=== PATIENT | female | born 1960 | race Caucasian/White ===

== ENCOUNTER 2018-02-15 10:08 | Inpatient (IN) | payer OTHER, SELFPAY ==
[2018-01-24 08:51] VITALS: BMI 27.9
[2018-02-15] VITALS (16 sets, daily range): BP systolic 97–131; BP diastolic 37–75; PULSE 64–111; RESP 10–16; TEMP 36.2–37.1; O2SAT 95–100; BMI 27.9
--- NOTE | 2018-02-15 | DI.RAD.S_ITS ---
PROCEDURE: XR CERVICAL SPINE 2V OR 3V INDICATIONS: C4-5, C5-6, C6-7 ACDF FINDINGS: 2 limited intraoperative fluoroscopically stored images of the cervical spine were obtained for intraoperative hardware localization purposes. These images are not meant for diagnostic purposes. Intraoperative findings related to a InterServe or cold discectomy and fusion procedure are present. IMPRESSION: Intraoperative images obtained during the patient's lower cervical fusion procedure. Dictated by: Piotr Leija M.D. on 02/15/2018 at 14:39 Approved by: Piotr Leija M.D. on 02/15/2018 at 14:42
[2018-02-15] MEDS: LACTATED RINGERS 1,000 ML 42 ML IV ×2 (10:50→15:23)
--- NOTE | 2018-02-15 12:22 | PM.PREOP ---
Pre-operative Note Interval Note Pre-op Check: Yes History & Physical Reviewed by Physician, Yes Exam Performed and Yes History & Physical exam performed today by Physician Changes: No
[2018-02-15] MEDS: CEFAZOLIN 2 GM/100 ML FROZ.PIGGY IV ×2 (12:47→22:27)
--- NOTE | 2018-02-15 13:37 | SUR.OPER ---
Supine, head on gel donut. Arms padded with gel pads, tucked at sides, towel roll under shoulders. Safety belt at thigh. Legs uncrossed.
[2018-02-15] MEDS: fentaNYL 100 MCG/2 ML INJ 50 MCG IV (15:44)
--- NOTE | 2018-02-15 15:44 | P.OP_ITS ---
Operative Date/Time/Diagnoses Date of procedure: 02/15/18 Time of procedure: 12:09 Pre-op diagnosis: 1. C4-5, c5-6, C6-7 spinal stenosis 2. C4-5, C5-6, C6-7 spondylosis with radiculopathy Post-op diagnosis: same Procedure & Clinicians Procedure: 1. C4-5 C5-6 C6-7 anterior cervical diskectomy and fusion 2. C4-5 C5-6 C6-7 anterior interbody cage placement 3. C4-5 C5-6 C6-7 anterior instrumentation with plate and screw placement in C4 -C5-C6 and C7 vertebrae 4. Utilization of microsurgical technique and operating microscope Same procedure as scheduled: Yes Indications: Patient has been having chronic neck pain and worsening cervical radiculopathy. Patient failed multiple conservative management with worsening pain weakness and numbness in her upper extremity. Patient has been having difficulty performing activity of daily living. After discussing risks benefits of treatment options, patient elected proceed with surgery. Surgeon: La Salazar Assembly Line Inspector: Perla Benson Click Yes if Unassisted: No Anesthesia Type: General Operative Notes Closure Type: primary Specimen(s): none sent Implants & Drains: GLobus extend plate, PEEK cages Estimated Blood Loss (mL): 50 Blood products transfused: none Procedure in detail: Patient was seen in the preoperative area. Risks and benefits of the surgery was discussed with the patient. Operative consent was obtained and placed in the chart. Patient was then taken to the operative room. Prophylactic antibiotic was given less than 0.5 hr prior to skin incision. General anesthesia was administered. Patient was placed into a supine position on her radiolucent table. Bilateral shoulders were taped down to allow proper C-arm imaging. Anterior cervical area was prepped and draped in a sterile fashion. Time-out was performed at this time. Using lateral C-arm imaging, the level between C4 and C7 was identified and marked on patient's neck. A oblique incision from midline towards medial border of sternocleidomastoid muscle was made. The platysma muscle was incised in line with skin incision. Metzenbaum scissor was used to develop the plane between the medial border of sternocleidomastoid d and the strap muscles medially. The carotid sheath and its contents were identified and protected behind the hand- held retractor during the entire case. The plane between the carotid sheath and strap muscles was developed with Metzenbaum scissors. Dissection was made down to the level of the anterior cervical fascia. Longus colli muscle was incised on the anterior aspect of vertebral bodies bilaterally from C4-C7. Spinal needle was placed into the C4-5 disc space and confirmed with lateral C-arm imaging. Using microsurgical technique and operative microscope, anterior cervical diskectomy was performed at C4-5 C5-6 and C6-7 level. This was done by removing the disc material, removing the anterior and posterior osteophytes posterior longitudinal ligaments along with performing bilateral foraminotomies at all 3 levels. Patient was found to have severe central and foraminal stenosis at all 3 levels. Patient's stenosis was fully decompressed after decompression was completed. After the diskectomy was completed, 3 anterior interbody cages were obtained. The cages were packed with globus via cell bone grafting material. One cage each along with the bone grafting material was then packed into the interbody spaces from C4-C7 with one cage into each interbody level. After the cages were placed, the anterior cervical plate was stabilized to the C4-C7 vertebrae using 2 screws at each each level. Total 8 screws were placed. After confirming placement of the hardware with AP and lateral C-arm imaging, the screws were locked into the plate using the locking mechanism and torque limiting screwdriver. After the hardware was placed and confirmed with AP and lateral C-arm imaging, the wound was irrigated with sterile normal saline. The platysma muscle and the subcutaneous tissue was closed with 2-0 Vicryl. The skin was closed with 4- 0Monocryl and Steri-Strips. Patient tolerated the procedure well. Patient was transferred recovery room in stable condition. There were no complications. Complications: none Condition: stable Disposition: Acute Care Plan for aftercare: Admit to inpatient hospital
[2018-02-15] MEDS: ONDANSETRON 4 MG/2 ML INJ IV (15:45)
[2018-02-15] MEDS: hydrOXYzine 50 MG/ML INJ 25 MG IM (15:49)
[2018-02-15] MEDS: SODIUM CHLORIDE 0.9% 1,000 ML 100 ML IV (17:35)
[2018-02-15] MEDS: hydrOXYzine pamoate 25 MG CAPSULE PO (19:55)
[2018-02-15] MEDS: IBUPROFEN 400 MG TABLET PO (20:04)
--- NOTE | 2018-02-15 21:00 | PC.NURSE ---
4368- Pt arrived to room 203 from PACU via bed. A/O x3, ant neck gauze/tegaderm drsg CDI, soft collar on. 99-100%RA, LS clear, denies SOB, nausea, and rates pain 2-3/10. R wrist NS @ 100, Up to BSC and BRP to void clear yellow. New orders for Vistaril 25mg Q-6hr PO PRN and ibuprofen 400mg PO Q-4hrs PRN. Pt reports not apt to take narcotics if possible, very sensitive. Call light in reach and bed alarm on.
[2018-02-15] MEDS: DOCUSATE 100 MG CAPSULE PO (22:27)
[2018-02-15] MEDS: SENNOSIDES 8.6 MG TABLET 17.2 MG PO (22:28)
[2018-02-15] MEDS: GABAPENTIN 600 MG TABLET PO (22:28)
[2018-02-15] MEDS: LORazepam 1 MG TABLET PO (22:35)
[2018-02-16] MEDS: OXYCODONE IR 5 MG TABLET 10 MG PO (03:23)
[2018-02-16] MEDS: SODIUM CHLORIDE 0.9% 1,000 ML 100 ML IV ×2 (03:23→10:37)
[2018-02-16 04:30] VITALS: BP 117/64; PULSE 80; RESP 16; TEMP 36.8; O2SAT 97
[2018-02-16] MEDS: CEFAZOLIN 2 GM/100 ML FROZ.PIGGY IV (04:50)
[2018-02-16 07:45] VITALS: BP 122/80; PULSE 75; RESP 14; TEMP 36.8; O2SAT 99
--- NOTE | 2018-02-16 09:19 | PT.IIE ---
Addendum entered and electronically signed by Rita Paredes, PT 02/16/18 16:59: This is to certify that I have reviewed this documentation and POC. Original Note: Current Diagnoses Other spondylosis with radiculopathy, cervical region (02/15/18) Spinal stenosis, cervical region (02/15/18) Surgery Performed Operation Date: 02/15/18 12:15 Actual Procedures p C4-5,C5-6,C6-7 Anterior Cervical Discectomy and Fusion with anterior instrumentation - La Salazar MD Surgical History (Last Updated 01/24/18 @ 09:24 by Tayler Drake RN) History of delivery (Acute) History of gastric surgery (Acute) History of mandibular surgery (Acute) Hx of arthroscopy of left knee (Acute) Hx of cholecystectomy (Acute) Hx of dilation and curettage (Acute) Hx of total hysterectomy (Acute) S/P foot surgery, left (Acute) Medical History (Last Updated 01/24/18 @ 09:24 by Tayler Drake RN) Anxiety and depression (Acute) Back pain (Acute) Claustrophobia (Acute) Diabetes (Acute) Easy bruisability (Acute) Eczema of both hands (Acute) Endometriosis (Acute) Fatty liver (Acute) History of bronchitis (Acute) History of ectopic (Acute) Hx of cardiac murmur (Acute) Neck pain (Acute) Numbness and tingling (Acute) RLS (restless legs syndrome) (Acute) Sleep apnea (Acute) Physical Therapy Inpatient Evaluation/Re-Eval M1 PT/OT-IP Prior Functional Status Start: 02/16/18 12:46 Freq: NEEDED Status: Discharge Protocol: Document 02/16/18 09:19 (Rec: 02/16/18 13:15 [id number]) Medical Review Prior Functional Status Medical History Reviewed Yes Communication No deficits noted. Mobility and Gait Pt previously independent with all mobilities using no AD including self care and driving. Social History Household Members spouse Living Arrangements Apartment/Condo Number of Floors (Floors) One Floor Number of Stairs To Enter/Railing? No stairs to enter. Home Environment High Toilet Walk in Shower Built-In Shower Seat Home Equipment Straight Cane Hand Held Shower Grab Bars Near Toilet Grab Bars In Shower Employment Status Follow Up Rep Employed Additional Social History Comment Pt lives with her who has dementia. She states he may be able to assist her a little at d/c. Her daughter lives next door and can assist intermittently post-op. 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 M1 PT/OT-IP Prior Functional Status Start: 02/16/18 16:26 Freq: NEEDED Status: Discharge Protocol: Document 02/16/18 14:20 PJM (Rec: 02/16/18 16:41 PJM [id number]) Medical Review Prior Functional Status Medical History Reviewed Yes Diet/Fluid Consistency Regular Communication WNL Mobility and Gait Pt previously independent with all mobilities using no AD. Activities of Daily Living and IADL's Pt independent with all self care, IADLS, driving. 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 He needs min assist with shower and donning socks and shoes. Prior Functional Level (Other details) Pt's daughter lvies with them, but owrks time checker. She can assist with IADLS before and after work. Pt has home care assist with 4 hrs/day 1-2 days/week and is planning to increase this time if needed. Pt plans to have L shoulder surgery prior in 2-3 weeks pending recovery from C spine surgery. Social History Household Members spouse children Living Arrangements Apartment/Condo Number of Floors (Floors) One Floor Number of Stairs To Enter/Railing? see P.T. note Home Environment Tub/Shower Built-In Shower Seat Home Equipment Hand Held Shower Correctional Officer Grab Bars In Shower Employment Status Follow Up Rep Employed Additional Social History Comment Pt has walk in tub with built in seat at home M2 PT-IP Current Condition Start: 02/16/18 12:46 Freq: NEEDED Status: Discharge Protocol: Document 02/16/18 09:19 (Rec: 02/16/18 13:15 [id number]) Physical Therapy Current Condition Current Condition Evaluation Date 02/16/18 Treatment Diagnosis C-spine discectomy/fusion; difficulty walking. Onset Date 02/15/2018 Precautions Cervical Spine Precautions Soft Collar for Comfort No Heavy Lifting Log Roll Brace Soft collar M3 PT-IP Subjective Start: 02/16/18 12:46 Freq: NEEDED Status: Discharge Protocol: Document 02/16/18 14:45 GGD (Rec: 02/16/18 15:46 GGD [id number]) Subjective Physical Therapy Visit Type Type Treatment Note Visit Start Time 14:30 Visit Stop Time 14:45 Total Visit Minutes 15 Number of IT LEAD Visits 1 Physical Therapy Visit Comments Patient Comments Pt states she want's to go home. Therapy Pain Assessment Pain When Pain Assessed During Mobility Pain Present Pain Present Pain Reported M4 PT-IP Mobility and Gait Start: 02/16/18 12:46 Freq: NEEDED Status: Discharge Protocol: Document 02/16/18 14:45 GGD (Rec: 02/16/18 15:46 GGD [id number]) PT-Bed Mobility Assessment Rolling Type of Rolling Log Rolling Bilateral Level of Assist Standby Assistance Supine to Sit Supine to Sit Standby Assistance Sit to Supine Sit to Supine Standby Assistance Scooting Scooting to Edge of Bed Standby Assistance PT-Transfer Assessment Sit to and From Stand Sit to and from Stand Contact Guard Assistance Use of Upper Extremities Equipment Transfer Assistive Device Gait Belt Front Wheeled Walker Orthotic/Prosthetic Devices or Brace: No Transfers Transfer Destination Bed Comments Mobility Comments BP after ambulation 136/91 Gait Assessment Gait Gait Assistance Required: Standby Assistance Distance (Feet) 80 Able to Maintain Weight Bearing Status Yes During Gait Assistive Devices Assistive Device Gait Belt Orthotic/Prosthetic Devices or Brace: No Gait Deviations General Gait Pattern Decreased Stride Length Decreased Feet Clearance Factors Limiting Gait Function Factors Limiting Gait Function Decreased Activity Tolerance Limited Range of Motion Pain Poor Balance Poor Safety Awareness M5 PT-IP Objective Assessments Start: 02/16/18 12:46 Freq: NEEDED Status: Discharge Protocol: Document 02/16/18 09:19 (Rec: 02/16/18 13:15 [id number]) Orientation Orientation/Cognition Level of Alertness Alert Orientation Name Age Birthday Month Date Year Day of Week Place Situation Language Function Ability No Deficits Noted Safety Awareness Decreased Safety Awareness Gross Range of Motion Lower Extremity ROM Assessment Within Functional Limits Strength Lower Extremity Strength Assessment Within Functional Limits Comments Strength Comments 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 BLE 5/5 . Sensation Assessment Sensation Light Touch Intact Comments Sensation Comments Pt states her L hand has a weird numb feeling. Light touch is intact when tested. M6 PT-IP Treatment Start: 02/16/18 12:46 Freq: NEEDED Status: Discharge Protocol: Document 02/16/18 14:45 GGD (Rec: 02/16/18 15:46 GGD [id number]) Physical Therapy Treatment Education Education Provided Precautions Safety M7 PT-IP Assessment and Plan Start: 02/16/18 12:46 Freq: NEEDED Status: Discharge Protocol: Document 02/16/18 14:45 GGD (Rec: 02/16/18 15:46 GGD [id number]) PT Summary Assessment and Plan Summary Assessment Summary Pt improved with mobility. She was able to ambulate without assistive device without LOB. She was SBA for bed mobility. Her BP was stable with mobility and no C/O dizziness. Frequency of Treatment Frequency Of Treatment Twice a Day Discharge Recommendations PT Discharge Recommendations Home with Assistance
[2018-02-16] MEDS: SODIUM CHLORIDE 0.9% 1,000 ML 1000 ML IV (09:30)
[2018-02-16] MEDS: ESTRADIOL 1 MG TABLET PO (09:35)
[2018-02-16] MEDS: FLUoxetine 20 MG CAPSULE 40 MG PO (09:35)
[2018-02-16] MEDS: DOCUSATE 100 MG CAPSULE PO (09:35)
[2018-02-16] MEDS: LORATADINE 10 MG TABLET PO (09:36)
[2018-02-16] MEDS: GABAPENTIN 600 MG TABLET PO ×2 (09:36→14:37)
[2018-02-16] MEDS: HYDROCODONE/ACET 5/325 TABLET 2 TAB PO ×2 (09:39→14:49)
[2018-02-16 11:08] VITALS: BP 123/67; PULSE 73; RESP 14; TEMP 36.7; O2SAT 100
--- NOTE | 2018-02-16 11:38 | P.DS_ITS ---
History of Present Illness Date Patient Seen: 02/16/18 Time Patient Seen: 11:37 Chief complaint: [id number] Narrative: Patient has been having chronic neck pain and worsening cervical radiculopathy. Patient failed multiple conservative management with worsening pain weakness and numbness in her upper extremity. Patient has been having difficulty performing activity of daily living. After discussing risks benefits of treatment options, patient elected proceed with surgery. Discharge Providers Date of admission: 02/15/18 10:08 Consults: 01/24/18 09:37 Consult to Respiratory Therapy Evaluate & Treat Comment: C4-7 ACDF 02/15/18, no CPAP r/t abdominal sugery Physician Instructions: Evaluate and treat 02/15/18 16:27 Consult to Occupational Therapy Evaluate & Treat Comment: Physician Instructions: Evaluate and treat Consult to Physical Therapy Evaluate & Treat Comment: Physician Instructions: Evaluate and Treat Discharge provider: Dee Stephenson PA-C Discharge Date: 02/16/18 Summary Discharge Diagnosis: s/p C4-7 ACDF Hospital Course: Honey was admitted for C4 through 7 Artificial cervical discectomy and fusion with Dr. Salazar, and she consented procedure. Hospital course was unremarkable. On postop day 1. She is ready to go home. She is eating and voiding without difficulty or assistance. No difficulty swallowing. Her pain was well controlled. She worked with physical therapy prior to discharge. Status at Discharge Functional status at discharge: uses cane/walker Exam Vital Signs (past 8 hours): - 02/16/18 04:30 02/16/18 07:45 Temperature 98.3 F 98.2 F Pulse Rate 80 75 Respiratory Rate 16 14 Blood Pressure 117/64 122/80 Pulse Oximetry 97 99 Oxygen Delivery Method Room Air Oxygen Flow Rate 0 Narrative Exam Narrative: Patient is sitting up in bed in no acute distress. She is alert and oriented x3. Calves are soft, compressible, nontender bilaterally. Anterior neck dressing at [facility]. Soft collar in place. Radial pulses are symmetrical. Her pain is well controlled with [place]. No complaints of chest pain or shortness of breath. Discharge Plan Discharge Plan Patient Disposition: Home Discharge comment: DC home today Discharge Med Rec/Prescriptions Prescriptions: New hydrocodone-acetaminophen 5-325 mg Tablet 2 tab PO Q4HR PRN (Reason: Pain, Severe (7-10)) Qty: 60 RF: 0 docusate sodium 100 mg Capsule 100 mg PO BID Qty: 60 RF: 0 hydroxyzine pamoate 25 mg Capsule 25 mg PO Q6HR PRN (Reason: Nausea) Qty: 60 RF: 0 Continue gabapentin 600 mg Tablet 600 mg PO TID RF: 0 cetirizine [Aller-[place]] 10 mg Tablet 10 mg PO DAILY RF: 0 ibuprofen 800 mg Tablet 800 mg PO QNOON RF: 0 methocarbamol [Robaxin-750] 750 mg Tablet 750 mg PO BEDTIME RF: 0 estradiol [Estrace] 2 mg Tablet 1 mg PO DAILY RF: 0 lorazepam [Ativan] 1 mg Tablet 1 mg PO BEDTIME RF: 0 fluoxetine [Prozac] 20 mg Capsule 40 mg PO DAILY RF: 0 Discontinued diclofenac sodium 100 mg Tablet Extended Release 24 Hr 100 mg PO DAILY RF: 0 Follow up/Referrals: La Salazar MD [Physician] - (Please follow up in 10-14 days with LISA) Provider Discharge Instructions Diet: Diet as Tolerated Activity: no excessive bending, lifting, or twisting Cold/Heat Therapy: as needed Skin/Wound/Dressing Care Report to your healthcare provider any signs of infection, such as:: chills, fever and increased pain Dressing: leave in place until appointment Discharge Data Attending Provider: La Salazar Admit Date/Time: 02/15/18 10:08
--- NOTE | 2018-02-16 11:50 | CM.DANOTE ---
Discharge Planning/Care Management Met with patient: patient notified of CM team role and patient understood. Patient has discharge orders home for today pending PT/OT eval. Patient unable to work with either at this time due to low BP. Patient will have the support of two daughters to assist patient with recovery and is very eager to discharge home today. Plan: pending PT/OT eval likely to discharge home with supportive spouse. CM Discharge Assessment Start: 02/16/18 11:46 Freq: Status: Active Protocol: Document 02/16/18 11:46 (Rec: 02/16/18 11:50 [id number]) Discharge Planning Assessment Assigned Office Clerk Assistant ADDIE Brown Advance Directives? Yes Advance Directives on File No History Provided By Patient Medical Record Has Patient been admitted in last 30 No days? Prior Living Arrangements Apartment/Condo Household Members spouse children Type of transporation used prior to Drives own vehicle admit Independent with ADL's Yes Is patient alert and oriented? Yes Caregiver for Another Yes: Spouse with dementia. Comment Helps spouse with shower and getting dressed. Family has private caregiver and supportive family lined up to care for spouse and patient. Patient/Family Preference OP PT Therapy Barriers to Discharge No Discharge Plan Home Community Services Physical Therapy Transportation Arrangement Daughter Zulay to bean picker patient. Referrals Initiated None needed Additional Comment Patient has discharge orders for home pending PT/OT eval. Patient was unable to work with either this morning due to low blood pressure. Whiteboard Updated in Patient Room with Yes name and ext. # of Office Clerk Assistant Review Status In Process Please Provide Date Initial DC 02/16/18 Assessment Was Performed Next Review Type Continued Stay Review Pre-Anesthesia Assessment Start: 01/24/18 08:51 Freq: Status: Inactive Protocol: Document 01/24/18 08:51 CAB (Rec: 01/24/18 09:35 CAB [id number]) Pre-Anesthesia Assessment Patient Information Reviewed Via Phone Assessment Assessment Completed With Patient Primary Care Provider Tea Mariano Seen Specialist in Last 12 Months Yes Specialist Seen Orthopedist Supervisor Vegetable Farming Primary Language Danish Rn Care Transition Required No Height 172.72 cm Weight 83.461 kg Body Mass Index (BMI) 27.9 Hearing Ability Normal Visual Assist Glasses Dentition Type Teeth, Natural Present Teeth, Missing Barriers to Learning None Hx Anesthesia Reactions No Hx Family Anesthesia Reaction No Hx Malignant Hyperthermia No Hx Blood Transfusions No Anesthesia Review Requested No Solar Sales Representative No alcohol intake former Alcohol Intake Frequency Other: Quit due to allergy Smoking Status Never smoker Substance Use Type does not use Pain Present Pain Reported Musculoskeletal Symptoms Back Pain Joint Pain Neck Pain Numbness History of Falling (Recent or History of No ) Patient is completely paralyzed or No completely immobile Mental Status Oriented to own ability Is patient on oxygen? No Does patient have DELAROSA/SOB No Hx Sleep Apnea Yes: States resolved after surgery, no CPAP Currently Taking a Beta Sourav No Can You Climb a Flight of Stairs Without Yes SOB Hx Chest Pain No Hx SOB No Hx Syncope or Dizziness Yes: Vertigo when head turned down Anti-Coagulant Therapy No Has a Braid Cutter No Cardiac Testing No Hx Pacemaker/ICD No Pacemaker Rep Required? No Cardiac Clearance Received Not Applicable Diet Type At Home Ketogenic dysphagia No: I need to do smaller bites Bladder Pattern Frequency Incontinent, Stress Urgency Urinary Catheter Present No Hx Urinary Self Catheterization No Diabetes Yes: Pt states resolved after gastric sleeve surgery Patient No Lactating No Hx Drug Resistant Organism No Presence of External or Internal Medical Yes Devices Comment Screws in jaw Have you traveled outside the [place] No States in the last 30 days? Marital Status Lives With spouse Prior Living Arrangements Apartment/Condo Number of Floors (Floors) One Floor Number of Stairs To Enter/Railing? Ramp or 2 steps Support System Child/Children Luiza/God Family Spouse Does the Patient Have Assistance After Yes Surgery Patient Discharge Plan Description Return Home Comment Spouse has dementia, limited support Feels Safe in Current Environment Yes Been Physically Hurt or Threatened By a No Person in Current Environment Do you have thoughts of harming yourself None or others? Are you currently considering suicide? No Do you have a plan to hurt yourself or No Plan others? Do You Have Any Spiritual Beliefs That No May Affect Your HC Choices? Do You Have Any Cultural Practices That No May Affect Your HC Choices? Spiritual Referral None Comment Yazdanism Who Can We Speak to About Patient's Care Family, friends Identifying Code for Release of Patient Declines to issue Information Health Care Proxy/Next of Kin Jolanta (daughter)Zulay ( daughter) Health Care Proxy Phone Number Jolanta: [phone] Zulay: Emergency Contact Name Jolanta (daughter)Zulay ( daughter) Emergency Contact Phone Number Jolanta: [phone] Zulay: [phone] Advance Directives? Yes Advance Directives on File No Requested Patient Bring Advanced Yes Directives DOS Power of Cell Operator No: Unsure PAC Instructions Durable medical equipment Medications to take/avoid Nasal antibiotic No ETOH/petroleum product on skin DOS NPO Post-op transportation Pre-surgical wash Sensory aids Sturdy shoes/comfortable clothes Do not bring valuables and remove jewelry
--- NOTE | 2018-02-16 13:37 | PC.NURSE ---
Called to bedside this morning by P.T. as patient reported some lightheadedness with getting up, blood pressure dropped to 64/35 per P.T. when she was standing and then assisted back to bed. Patient felt better with laying down. 123/63 upon reassessment. Gaby Roberts notified and order for fluid bolus received and administered. Patient also encouraged to take in more oral fluids. Patient able to rest in bed. Plan for re assessment by P.T. later today. Call light within reach, continue to follow.
--- NOTE | 2018-02-16 14:20 | OT.IP.EVAL ---
Current Diagnoses Other spondylosis with radiculopathy, cervical region (02/15/18) Spinal stenosis, cervical region (02/15/18) Surgery Performed Operation Date: 02/15/18 12:15 Actual Procedures p C4-5,C5-6,C6-7 Anterior Cervical Discectomy and Fusion with anterior instrumentation - La Salazar MD Past Medical History (Last Updated 01/24/18 @ 09:24 by Tayler Drake RN) Anxiety and depression (Acute) Back pain (Acute) Claustrophobia (Acute) Diabetes (Acute) Easy bruisability (Acute) Eczema of both hands (Acute) Endometriosis (Acute) Fatty liver (Acute) History of bronchitis (Acute) History of ectopic (Acute) Hx of cardiac murmur (Acute) Neck pain (Acute) Numbness and tingling (Acute) RLS (restless legs syndrome) (Acute) Sleep apnea (Acute) Surgical History (Last Updated 01/24/18 @ 09:24 by Tayler Drake RN) History of delivery (Acute) History of gastric surgery (Acute) History of mandibular surgery (Acute) Hx of arthroscopy of left knee (Acute) Hx of cholecystectomy (Acute) Hx of dilation and curettage (Acute) Hx of total hysterectomy (Acute) S/P foot surgery, left (Acute) Occupational Therapy Inpatient Evaluation/Re-Eval M1 PT/OT-IP Prior Functional Status Start: 02/16/18 16:26 Freq: NEEDED Status: Active Protocol: Document 02/16/18 14:20 PJM (Rec: 02/16/18 16:41 PJM [id number]) Medical Review Prior Functional Status Medical History Reviewed Yes Diet/Fluid Consistency Regular Communication WNL Mobility and Gait Pt previously independent with all mobilities using no AD. Activities of Daily Living and IADL's Pt independent with all self care, IADLS, driving. 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 He needs min assist with shower and donning socks and shoes. Prior Functional Level (Other details) Pt's daughter lives with them, but works time buyer. She can assist with IADLS before and after work. Pt has home care assist with 4 hrs/day 1-2 days/week and is planning to increase this time if needed. Pt plans to have L shoulder surgery prior in 2-3 weeks pending recovery from C spine surgery. Social History Household Members spouse children Living Arrangements Apartment/Condo Number of Floors (Floors) One Floor Number of Stairs To Enter/Railing? see P.T. 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 02/16/18 AM M3 OT- IP Subjective and Pain Start: 02/16/18 16:26 Freq: Status: Active Protocol: Document 02/16/18 14:20 PJM (Rec: 02/16/18 16:41 PJ [email or web address]) OT- Subjective Occupational Therapy Visit Type Type Initial Evaluation Visit Start Time 13:45 Visit Stop Time 14:20 Total Visit Minutes 35 Occupational Therapy Visit Comments Patient Comments I hope I can get my shoulder fixed in about 3 weeks. It is hurting more than my neck right now. Patient/Caregiver Goals to return to work in 6-8 weeks . OT Pain Assessment Pain When Pain Assessed After Treatment Pain Present Pain Present Pain Reported Location Left Shoulder Intensity 6 Scale Used Numeric (1 - 10) Description Aching Acute Burning M4 OT- IP ADL's Start: 02/16/18 16:26 Freq: Status: Active Protocol: Document 02/16/18 14:20 PJM (Rec: 02/16/18 16:41 PJ [id number]) OT [id number] General Evaluation Diet Level for Self-Feeding softer diet recommended Self-Feeding Ability Independent OT ADL-Grooming General Evaluation Grooming Ability Independent Areas Needing Assistance Combing/Brushing Hair Face Washing Comments OT Grooming Comments after education re: body mechanics OT ADL-Oral Care General Eval Oral Care Ability Independent Areas of Assistance Brushing Teeth Devices Oral Care Devices Toothbrush Comments Oral Care Comments after education re: body mechanics OT ADL-Dressing General Eval Upper Body Dressing Ability Independent Comments OT Dressing Comments after education re: body mechanics OT ADL-Toileting General Evaluation Toileting Ability Independent OT ADL-Bathing Bathing Type Bathing Type Shower General Evaluation Bathing Ability Minimal Assistance Devices Bathing Equipment Hand Held Shower Sprayer Comments OT Bathing Comments Daughter states she can assist pt re: hair washing PRN. Provided education re: body mechanics and methods to keep incision dry. M5 OT- IP IADL's Start: 02/16/18 16:26 Freq: Status: Active Protocol: Document 02/16/18 14:20 PJM (Rec: 02/16/18 16:41 PJ [email or web address]) OT-Instrumental Activities of Daily Living Deficits IADL Deficits Identified Deficits Home Safety Awareness Awareness of Need for Assistance at Home Good Awareness Ability to Problem Solve Emergency Able to Problem Solve Situations Medication Management Medication Management No Deficits Identified Money Management Money Management No Deficits Identified Meal Preparation Meal Preparation Caregiver Provides Assist Meal Preparation Comments daughter to assist until pt able Dispatcher Service Chief Dispatcher Service Chief Caregiver Provides Assist Dispatcher Service Chief Comments daughter to assist until pt able Driving Driving Caregiver Provides Assist Driving Comments daughter to assist until pt able M6 OT- IP Functional Cognition Start: 02/16/18 16:26 Freq: Status: Active Protocol: Document 02/16/18 14:20 PJM (Rec: 02/16/18 16:41 PJ [id number]) Cognitive Factors Limiting Selfcare Function Cognitive Ability Level of Alertness Alert Patient Orientation Name Age Birthday Month Date Year Day of Week Place Situation Attention Span Ability Capable of Focused Attention Capable of Sustained Attention Ability to Follow Commands Able to Follow Multi-Step Commands Memory Description No Deficits Noted Safety Awareness No Deficits Noted Executive Function Ability No Deficits Noted Abstract Thinking Ability No Deficits Noted OT- Vision and Hearing OT- Hearing Assessment OT- Hearing Assessment WFL OT- Vision Assessment Visual Acuity Glasses All The Time Vision Assessment Comments Pt denies any recent vision changes M7 OT- IP Mobility and Balance Start: 02/16/18 16:26 Freq: Status: Active Protocol: Document 02/16/18 14:20 PJM (Rec: 02/16/18 16:41 PJ [email or web address]) OT-Transfer Assessment Sit to and From Stand Sit to and from Stand Standby Assistance Transfers Transfer Ability Standby Assistance Technique Transfer Destination Chair Comments Mobility Comments Orthostatics negative this session and pt asymptomatic. Notified RN. OT- Gait Assessment Comments Gait Ability Comments see P.T. notes OT- Balance Assessment Sitting Balance and Reactions Static Sitting Balance Ability Good Dynamic Sitting Balance Ability Good Standing Balance and Reactions Static Standing Balance Ability Good Dynamic Standing Balance Ability Good M8 OT- IP Objective Assessments Start: 02/16/18 16:26 Freq: Status: Active Protocol: Document 02/16/18 14:20 PJM (Rec: 02/16/18 16:41 PJM [id number]) OT Gross Range of Motion Upper Extremity Range of Motion Assessment Left Impaired ROM Impairments L shoulder scaption limited to about 90 degrees by AC joint pain. Other AROM WFL but end range of R shoulder NT tested due to recent C spine surgery. 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 Hand Dominance Right OT- Coordination Assessment Comments Coordination Comments BUE WFL OT-Muscle Tone Assessment Muscle Tone WNL Yes OT Sensation Assessment Comments Summary Comments Pt denies sensory deficits in BUES Edema Edema Absent M9 OT- IP Assessment and Plan Start: 02/16/18 16:26 Freq: Status: Active Protocol: Document 02/16/18 14:20 PJM (Rec: 02/16/18 16:41 PJM [id number]) OT Summary Assessment and Plan Potential Rehabilitation Potential Good Analytic Complexity at Evaluation Low Summary OT Impairments Pain Assessment Summary Low complexity OT assessment and all education completed in one session re: C spine precautions, body mechanics and adapted ADLS. Pt plans to d/c home today with family assist for first 4 days with caregiver coming in 4 hrs tomorrow to assist with hsuband with dementia. Frequency of Treatment Frequency Of Treatment Discharge Treatment Plan Other Treatment Recommendations and Next No further OT services needed Treatment Focus Discharge Recommendations OT Discharge Recommendations Home with Assistance Home Equipment Needs none
--- NOTE | 2018-02-16 14:45 | PT.IPTN ---
Current Diagnoses Other spondylosis with radiculopathy, cervical region (02/15/18) Spinal stenosis, cervical region (02/15/18) Surgery Performed Operation Date: 02/15/18 12:15 Actual Procedures p C4-5,C5-6,C6-7 Anterior Cervical Discectomy and Fusion with anterior instrumentation - La Salazar MD Physical Therapy Treatment Note M2 PT-IP Current Condition Start: 02/16/18 12:46 Freq: NEEDED Status: Discharge Protocol: Document 02/16/18 09:19 (Rec: 02/16/18 13:15 [email or web address]) Physical Therapy Current Condition Current Condition Evaluation Date 02/16/18 Treatment Diagnosis C-spine discectomy/fusion; difficulty walking. Onset Date 02/15/2018 Precautions Cervical Spine Precautions Soft Collar for Comfort No Heavy Lifting Log Roll Brace Soft collar M3 PT-IP Subjective Start: 02/16/18 12:46 Freq: NEEDED Status: Discharge Protocol: Document 02/16/18 14:45 GGD (Rec: 02/16/18 15:46 GGD [id number]) Subjective Physical Therapy Visit Type Type Treatment Note Visit Start Time 14:30 Visit Stop Time 14:45 Total Visit Minutes 15 Number of RADIOLOGIST PHYSICIAN Visits 1 Physical Therapy Visit Comments Patient Comments Pt states she want's to go home. Therapy Pain Assessment Pain When Pain Assessed During Mobility Pain Present Pain Present Pain Reported M4 PT-IP Mobility and Gait Start: 02/16/18 12:46 Freq: NEEDED Status: Discharge Protocol: Document 02/16/18 14:45 GGD (Rec: 02/16/18 15:46 GGD [id number]) PT-Bed Mobility Assessment Rolling Type of Rolling Log Rolling Bilateral Level of Assist Standby Assistance Supine to Sit Supine to Sit Standby Assistance Sit to Supine Sit to Supine Standby Assistance Scooting Scooting to Edge of Bed Standby Assistance PT-Transfer Assessment Sit to and From Stand Sit to and from Stand Contact Guard Assistance Use of Upper Extremities Equipment Transfer Assistive Device Gait Belt Front Wheeled Walker Orthotic/Prosthetic Devices or Brace: No Transfers Transfer Destination Bed Comments Mobility Comments BP after ambulation 136/91 Gait Assessment Gait Gait Assistance Required: Standby Assistance Distance (Feet) 80 Able to Maintain Weight Bearing Status Yes During Gait Assistive Devices Assistive Device Gait Belt Orthotic/Prosthetic Devices or Brace: No Gait Deviations General Gait Pattern Decreased Stride Length Decreased Feet Clearance Factors Limiting Gait Function Factors Limiting Gait Function Decreased Activity Tolerance Limited Range of Motion Pain Poor Balance Poor Safety Awareness M5 PT-IP Objective Assessments Start: 02/16/18 12:46 Freq: NEEDED Status: Discharge Protocol: Document 02/16/18 09:19 (Rec: 02/16/18 13:15 [id number]) Orientation Orientation/Cognition Level of Alertness Alert Orientation Name Age Birthday Month Date Year Day of Week Place Situation Language Function Ability No Deficits Noted Safety Awareness Decreased Safety Awareness Gross Range of Motion Lower Extremity ROM Assessment Within Functional Limits Strength Lower Extremity Strength Assessment Within Functional Limits Comments Strength Comments B level vial curvature gauger is symetrical. BLE 5/5 . Sensation Assessment Sensation Light Touch Intact Comments Sensation Comments Pt states her L hand has a weird numb feeling. Light touch is intact when tested. M6 PT-IP Treatment Start: 02/16/18 12:46 Freq: NEEDED Status: Discharge Protocol: Document 02/16/18 14:45 GGD (Rec: 02/16/18 15:46 GGD [id number]) Physical Therapy Treatment Education Education Provided Precautions Safety M7 PT-IP Assessment and Plan Start: 02/16/18 12:46 Freq: NEEDED Status: Discharge Protocol: Document 02/16/18 14:45 GGD (Rec: 02/16/18 15:46 GGD [id number]) PT Summary Assessment and Plan Summary Assessment Summary Pt improved with mobility. She was able to ambulate without assistive device without LOB. She was SBA for bed mobility. Her BP was stable with mobility and no C/O dizziness. Frequency of Treatment Frequency Of Treatment Twice a Day Discharge Recommendations PT Discharge Recommendations Home with Assistance
--- NOTE | 2018-02-16 15:34 | PC.NURSE ---
S.T. planning to come see patient for screening at 1530, patient was ready for discharge and reports she doesn't want to wait for them and states she feels comfortable without seeing them. Discharge instructions and home care handouts reviewed with patient, she states understanding and eager to go home. Cleared by P.T. and met with O.T. Dressing remains CDI and soft collar in place. IV discontinued intact. Patient escorted out via wheelchair with all belongings by LETTER CARRIER to be discharged to home with daughter. Patient states she has follow up scheduled.
--- NOTE | 2018-02-17 08:12 | CM.DPC ---
DCP Discharge Home Per MD, pt was medically stable to d/c home yesterday evening after CHILD NEUROLOGIST shift with no identified barriers to discharge. Plan: Patient discharged home last night after CHILD NEUROLOGIST shift and no SW needs at this time. ADDIE Matias
== END 2018-02-16 15:05 | disposition home or self-care (01) | DRG 473 ==
PROVIDERS: Admitting Provider Orthopaedic Surgery Orthopaedic Surgery of the Spine; Visit Provider Orthopaedic Surgery Orthopaedic Surgery of the Spine
PROC: 0RG20A0 Fusion of 2 or more Cervical Vertebral Joints with Interbody Fusion Device, Anterior Approach, Anterior Column, Open Approach (ICD-10-PCS; principal; 2018-02-15 12:15)
DX: M47.22 Other spondylosis with radiculopathy, cervical region (principal); M48.02 Spinal stenosis, cervical region; E78.5 Hyperlipidemia, unspecified
CPT/HCPCS: 72040; 76001; 97116; 97161; 97165; 97530; 97535; C1776; J0330; J0690; J1100; J2250; J2405; J2704; J3010; J3410

== ENCOUNTER 2018-03-06 13:04 | Day surgery (SDC) | payer OTHER, SELFPAY ==
[2018-02-15 11:01] VITALS: BMI 27.9
[2018-03-03 08:31] VITALS: BMI 27.9
[2018-03-06] VITALS (9 sets, daily range): BP systolic 108–128; BP diastolic 41–65; PULSE 82–106; RESP 8–16; TEMP 36.1–36.6; O2SAT 96–100; BMI 26.6
[2018-03-06] MEDS: LACTATED RINGERS 1,000 ML 42 ML IV ×2 (14:10→17:28)
--- NOTE | 2018-03-06 15:07 | PM.PREOP ---
Pre-operative Note Interval Note Pre-op Check: Yes History & Physical Reviewed by Physician Changes: No
[2018-03-06] MEDS: CEFAZOLIN 2 GM/100 ML FROZ.PIGGY IV (16:03)
--- NOTE | 2018-03-06 16:25 | SUR.OPER ---
Beach chair with Ritan/Nica shoulder positioner. Lower body on padded OR bed. Head in foam padded head cradle, secured with straps. Non-operative arm secured <90 degrees abduction. Pillow under knees. Safety belt at thigh. Cloth tape over blanket over lower legs, gel pad under heels
[2018-03-06] MEDS: BUPIVACAINE 0.5% W/ EPI (PF) VIAL 30 ML INJ (16:33)
[2018-03-06] MEDS: SODIUM CHLORIDE IRRIG SOLUTION 6,000 ML, EPINEPHrine 2 MG IRR (16:38)
--- NOTE | 2018-03-06 17:08 | P.OP_ITS ---
Operative Date/Time/Diagnoses Date of procedure: 03/06/18 Time of procedure: 16:00 Pre-op diagnosis: Left shoulder subacromial impingement as well as AC joint arthritis Post-op diagnosis: same Procedure & Clinicians Procedure: Left shoulder debridement with arthroscopic subacromial decompression as well as distal clavicle excision. Same procedure as scheduled: Yes Indications: Left shoulder impingement as well as AC joint arthritis unresponsive to conservative treatment. Surgeon: Alfonso Brizuela Release Specialist: Jeny Armstrong Anesthesia Type: General and Peripheral nerve block Operative Notes Findings: No sign of any rotator cuff tears either articular or bursal sided. Some fraying of the rotator cuff on the bursal side but no significant partial tears. No significant arthritic changes to the glenohumeral joint. No Bankart tears or slap tears. Biceps tendon and anchor free of any tearing or significant synovitis. No loose bodies in the glenohumeral joint. Patient had a very large inferior osteophyte coming off the distal clavicle as well as arthritic changes to the AC joint. Impingement lesion also present in the subacromial arch. Closure Type: primary Estimated Blood Loss (mL): 5 Blood products transfused: none Procedure in detail: On date of service, Patient was met in the holding area. The operative site was signed and witnessed by the OR staff. The surgeries once again discussed with the patient and any remaining questions they had were answered fully. Patient was taken back to the operating theater and placed on the operating table in a supine position. Great care was taken to ensure that all bony prominences were properly padded. Patient was then placed into the beach chair position. The head and neck were properly positioned and secured. A timeout was performed verifying patient's name, procedure, and the operative site. The upper extremity was then prepped and draped in the normal sterile fashion. Previously, the bony anatomy and portal sites were marked out as well as injected with Marcaine with epinephrine. An 11 blade was used to make an incision in the posterior aspect of the shoulder. The camera was placed, and a diagnostic shoulder scope was performed. Findings listed above. Next under direct visualization, a anterior portal was made. The shaver was brought in and a debridement of the glenohumeral joint was performed. Patient had some degenerative fraying of the labrum which was cleaned up. Next the camera was placed into the subacromial space. A lateral portal was obtained under direct visualization. A combination of the shaver and vapor wand , a debridement of the inflamed tissue as well as inflamed bursa was performed. The lateral gutter was also cleaned out. This gave us good visualization of the bursal aspect of the rotator cuff as well as the acromial arch. There was an obvious impingement lesion in the acromial arch. Next we turned our attention to the subacromial decompression. Next, a mechanical rasp was then used to do a subacromial decompression. This allowed us to convert the acromion to a type I acromial. This also allowed us to shave down the bony lesion in the acromial space. The rasp was placed into the lateral portal as well as the anterior portal in order to do a complete subacromial decompression. We next turned our attention to the distal clavicle. Using the shaver in the vapor wand we were able to clean out all the soft tissue around the distal clavicle as well as into the a.c. joint. This gave us good visualization of the arthritic changes to the distal clavicle as well as good of the a.c. joint allowing us to assess our distal clavicle excision. Of the inferior osteophytes coming off the distal clavicle. Using the mechanical rasp in the anterior portal, we were able to remove the inferior osteophytes as well as do a distal clavicle excision. The camera was then placed into the anterior portal which gave us a direct visualization of the a.c. joint allowing us to assess the distal clavicle excision. We then turned our attention to the rotator cuff tear. There was no signs of any bursal sided tears. Patient had some mild bursal fraying which was cleaned up using the shaver. Any remaining subacromial and sub deltoid bursa was also debrided. The shoulder was then taken through range of motion and there was no sign of any additional impingement. Patient's shoulder was then cleaned dried and dressed and patient was taken to the PACU in stable condition. Complications: none Condition: stable Disposition: PACU Plan for aftercare: Patient will follow our postoperative protocol for subacromial decompression with distal clavicle excision.
[2018-03-06] MEDS: fentaNYL 100 MCG/2 ML INJ 50 MCG IV ×2 (17:18→17:31)
[2018-03-06] MEDS: HYDROMORPHONE 2 MG INJ 0.5 MG IV ×2 (17:23→17:37)
[2018-03-06] MEDS: OXYCODONE/ACETAMINOPHEN 5/325 TABLET 1 TAB PO (18:04)
--- NOTE | 2018-03-06 18:52 | SUR.PHASEII ---
DC'd home. Initially with some lightheadedness but able to weight bear and stand without assistance. VS ck'd and stable. Desired d/c home and d/c'd in care of dtr.
== END 2018-03-06 18:45 | disposition home or self-care (01) ==
PROVIDERS: PCP Physician Assistant; Visit Provider Orthopaedic Surgery
PROC: (CPT 29805; principal; 2018-03-06 14:45)
DX: M75.42 Impingement syndrome of left shoulder (principal); M19.012 Primary osteoarthritis, left shoulder; M75.112 Incomplete rotator cuff tear or rupture of left shoulder, not specified as traumatic; D64.9 Anemia, unspecified; E78.5 Hyperlipidemia, unspecified
CPT/HCPCS: 29823; 29824; 29826; J0171; J0330; J0690; J1100; J1170; J2405; J2704; J3010